=== PATIENT | male | born 1990 | race Caucasian/White ===

== ENCOUNTER 2018-08-28 15:12 | Emergency (ER) | payer OTHER ==
[~2018-08-28] VITALS: Ht 170.2 cm; Wt 65.8 kg
[~2018-08-28 15:12] MED LIST: AMOXICILLIN; AMOXICILLIN 50500 MG PO; BENADRYL25 MG PO; MEDROL DOSPAK21 TA1 PO; NORCO 5-325 TA1 EACH PO; SEROQUEL 50 MG50 M1 PO; TRILEPTAL 300300 MG PO; TRILEPTAL PO; TRILEPTAL150 MG PO; ZOLOFT25 MG PO; ZPAK PO
[2018-08-28 15:19] VITALS: BP 144/78
== END 2018-08-28 16:19 | disposition home or self-care (01) ==
LOC: M.ERS 15:12
DX: S93.491A Sprain of other ligament of right ankle, initial encounter (principal); F32.9 Major depressive disorder, single episode, unspecified; W18.39XA Other fall on same level, initial encounter; Y93.89 Activity, other specified; Y92.89 Other specified places as the place of occurrence of the external cause; Y99.8 Other external cause status

== ENCOUNTER 2019-02-18 20:42 | Emergency (ER) | payer OTHER ==
[~2019-02-18] VITALS: Ht 177.8 cm; Wt 63.5 kg
[2019-02-18 20:47] VITALS: BP 135/71
[2019-02-18] MEDS ORDERED: TRIAMCINOLONE A80 G2 TOP (21:11)
== END 2019-02-18 21:30 | disposition home or self-care (01) ==
LOC: M.ERS 20:42
DX: L25.5 Unspecified contact dermatitis due to plants, except food (principal); F32.9 Major depressive disorder, single episode, unspecified

== ENCOUNTER 2019-11-04 11:51 | Emergency (ER) | payer OTHER ==
[~2019-11-04] VITALS: Ht 172.7 cm; Wt 61.2 kg
[~2019-11-04 11:51] MED LIST changes: +TRIAMCINOLONE A80 G2 TOP
[2019-11-04] MEDS ORDERED: KEFLEX500 M1 PO (13:51)
[2019-11-04] MEDS ORDERED: IBUPROFEN 800800 M1 PO (13:51)
[2019-11-04 14:15] VITALS: BP 125/75
== END 2019-11-04 14:16 | disposition home or self-care (01) ==
LOC: M.ERS 11:51
DX: S61.411A Laceration without foreign body of right hand, initial encounter (principal); L03.113 Cellulitis of right upper limb; F32.9 Major depressive disorder, single episode, unspecified; F17.200 Nicotine dependence, unspecified, uncomplicated; Z88.1 Allergy status to other antibiotic agents; W26.8XXA Contact with other sharp object(s), not elsewhere classified, initial encounter; Y92.89 Other specified places as the place of occurrence of the external cause; Y93.89 Activity, other specified; Y99.0 Civilian activity done for income or pay